=== PATIENT | female | born 1985 | race Caucasian/White ===

== ENCOUNTER 2016-03-29 14:16 | Inpatient (IN) | payer BC ==
[2016-03-29 14:53] LABS: ROM Internal QC QC Line Present
[2016-03-29] MEDS ORDERED: Penicillin G Potassium IV* 5,000,000 UNITS in NS 0.9% 100 ML* 100 ML IVPB ONE (15:15)
[2016-03-29 15:47] LABS: Hematocrit 37 % (35-47); Hemoglobin 12.6 g/dl (12.0-16.0); Mean Corpuscular HGB Conc 34 g/dl (31-36); Mean Corpuscular Hemoglobin 32 pg (27-31); Mean Corpuscular Volume 95 fL (80-97); Mean Platelet Volume 9 um3 (7.4-10.4); Red Cell Distribution Width 14 % (10.5-15); White Blood Count 7.6 10^3/ul (3.5-10.8)
[2016-03-29] MEDS ORDERED: Oxytocin in LR* 20 UNITS/1,000 ML BAG IVPB SCH (19:00)
[2016-03-29] MEDS: Penicillin G Potassium IV* 2,500,000 UNITS in NS 0.9% 100 ML* 100 ML IVPB SCH ×2 (19:48→23:51)
[2016-03-29] MEDS ORDERED: OBEPIDURAL* 250 ML ONE (21:56)
[2016-03-29] MEDS ORDERED: Famotidine TAB* 20 MG PO PRN (23:16)
[2016-03-29] MEDS ORDERED: EPHEDrine (Pressors)* 50 MG/ML VIAL IV PUSH PRN ×2 (23:16)
[2016-03-29] MEDS ORDERED: Sodium Citrate/Citric Acid* 15 ML UDC PO PRN (23:16)
[2016-03-29] MEDS ORDERED: Phenylephrine IV* 40 MCG/ML 10 ML SYRINGE IV PUSH PRN ×2 (23:16)
[2016-03-30] MEDS ORDERED: Acetaminophen TAB* 325 MG PO ONE (01:24)
[2016-03-30] MEDS ORDERED: Acetaminophen TAB* 325 MG ONE (01:28)
[2016-03-30] MEDS ORDERED: Ampicillin IV* 2 GM in NS 0.9% 100 ML* 100 ML IVPB ONE ×2 (02:21→03:00)
[2016-03-30] MEDS ORDERED: Gentamicin ADULT (*) 80 MG in NS 0.9% 100 ML* 100 ML IVPB ONE (03:00)
[2016-03-30] MEDS ORDERED: ceFOXitin 2 GM IVPREMIX* 2 GM/50 ML BAG ONE (04:12)
[2016-03-30] MEDS ORDERED: ceFOXitin 2 GM IVPREMIX* 2 GM/50 ML BAG IVPB ONE (04:35)
[2016-03-30] MEDS ORDERED: Lidocaine 2% EPI 1:200000 MPF* 20 ML VIAL ONE (04:42)
[2016-03-30] MEDS ORDERED: Sodium Bicarbonate 8.4% IV* 50 ML VIAL ONE (04:42)
[2016-03-30] MEDS ORDERED: fentaNYL* 50 MCG/ML 2 ML VIAL (100 MCG VIAL) ONE (04:45)
[2016-03-30] MEDS ORDERED: Morphine PF AMP (0.5MG/ML)* 5 MG/10 ML AMP ONE (04:52)
[2016-03-30] MEDS ORDERED: Naloxone* 0.4 MG/ML 1 ML VIAL IV PRN (05:10)
[2016-03-30] MEDS ORDERED: Ondansetron INJ* 2 MG/ML VIAL IV PRN (05:10)
[2016-03-30] MEDS ORDERED: HYDROmorphone INJ* 1 MG/ML CARPUJECT SYRINGE IV PRN (05:10)
[2016-03-30] MEDS ORDERED: Glycerin ADULT SUPP PR PRN (06:09)
[2016-03-30] MEDS ORDERED: Dibucaine 1% 28.35 GM TUBE PR PRN (06:09)
[2016-03-30] MEDS ORDERED: Witch Hazel PAD* JAR TOPICAL PRN (06:09)
[2016-03-30] MEDS ORDERED: Acetaminophen TAB* 325 MG PO PRN (06:09)
[2016-03-30] MEDS ORDERED: Oxytocin in LR* 20 UNITS/1,000 ML BAG IVPB SCH (07:00)
[2016-03-30] MEDS: OBEPIDURAL* 250 ML EPIDURAL SCH (08:15)
[2016-03-30] MEDS: Ibuprofen TAB* 600 MG PO SCH ×3 (08:16→18:44)
[2016-03-30] MEDS: Penicillin G Potassium IV* 2,500,000 UNITS in NS 0.9% 100 ML* 100 ML IVPB SCH (08:19)
[2016-03-30] MEDS: Ampicillin IV* 2 GM in NS 0.9% 100 ML* 100 ML IVPB SCH ×3 (08:25→21:03)
[2016-03-30] MEDS: Simethicone TAB* 80 MG TAB.CHEW PO SCH ×4 (09:18→21:03)
[2016-03-30 09:24] LABS: EGFR African American 145.4 (>60)
[2016-03-30] MEDS: Clindamycin 900 MG IVPREMIX(* 900 MG/50 ML SDV IV SCH ×2 (09:26→17:08)
[2016-03-30] MEDS: Docusate CAP* 100 MG PO SCH ×3 (09:28→21:03)
[2016-03-30] MEDS: Gentamicin ADULT (*) 110 MG in NS 0.9% 100 ML* 100 ML IVPB SCH ×2 (10:24→19:27)
[2016-03-30] MEDS ORDERED: Gentamicin ADULT (*) 40 MG/ML VIAL IVPB SCH (14:00)
[2016-03-30] MEDS: oxyCODONE/Acetamin 5/325 MG* TAB PO PRN ×2 (14:26→21:09)
[2016-03-31] MEDS: Ibuprofen TAB* 600 MG PO SCH ×2 (00:59→07:23)
[2016-03-31] MEDS: Clindamycin 900 MG IVPREMIX(* 900 MG/50 ML SDV IV SCH ×2 (01:00→09:55)
[2016-03-31] MEDS: oxyCODONE/Acetamin 5/325 MG* TAB PO PRN ×4 (01:13→22:06)
[2016-03-31] MEDS: Ampicillin IV* 2 GM in NS 0.9% 100 ML* 100 ML IVPB SCH ×3 (02:33→17:35)
[2016-03-31] MEDS: Gentamicin ADULT (*) 110 MG in NS 0.9% 100 ML* 100 ML IVPB SCH ×2 (03:19→10:33)
[2016-03-31] MEDS: OBEPIDURAL* 250 ML EPIDURAL SCH (06:06)
[2016-03-31 07:28] LABS: Hematocrit 32 % (35-47); Hemoglobin 10.9 g/dl (12.0-16.0); Mean Corpuscular HGB Conc 34 g/dl (31-36); Mean Corpuscular Hemoglobin 33 pg (27-31); Mean Corpuscular Volume 95 fL (80-97); Mean Platelet Volume 8 um3 (7.4-10.4); Red Blood Count 3.35 10^6/ul (4.0-5.4); Red Cell Distribution Width 14 % (10.5-15); White Blood Count 9.4 10^3/ul (3.5-10.8)
[2016-03-31] MEDS: Docusate CAP* 100 MG PO SCH ×3 (08:54→22:06)
[2016-03-31] MEDS: Simethicone TAB* 80 MG TAB.CHEW PO SCH ×4 (08:54→22:06)
[2016-03-31] MEDS ORDERED: Ferrous Gluconate TAB* 324 MG TAB PO SCH (09:00)
[2016-03-31] MEDS: Ibuprofen TAB* 600 MG PO PRN ×2 (13:44→22:06)
--- NOTE | 2016-03-31 15:18 | OP ---
DATE OF OPERATION: 03/30/16 - ROOM #116 DATE OF : 85 SURGEON: Janie Dailey MD RETAIL SUPPORT ASSOCIATE: Sisi Sanchez CNM ANESTHESIOLOGIST: Dr. Sánchez. ANESTHESIA: Epidural. PRE-OP DIAGNOSES: Intrauterine at 40-6/7th weeks, arrest of descent, chorioamnionitis. POST-OP DIAGNOSES: Intrauterine at 40-6/7th weeks, arrest of descent , chorioamnionitis, delivered. OPERATIVE PROCEDURE: Primary low transverse section. FINDINGS: Revealed a vertex male infant, direct occiput posterior, 's were 9 at one minute and 9 at five minutes, weight was 9 pounds 11 ounces. No nuchal cord. No meconium. Placenta was calcified, manually extracted. Three- vessel cord intact. Placental culture sent. Normal-appearing tubes and ovaries bilaterally. An enlarged 7-mm posterior subserosal fibroid, 2-cm anterior subserosal fibroid. Normal uterine cavity. No evidence of retained membranes or placental tissue. COMPLICATIONS: None apparent. DISPOSITION: Stable to recovery room. IV FLUIDS: 2600 cc of crystalloid. URINE OUTPUT: 300 cc of clearing yellow urine, blood tinged when first inserted. EBL: 500 cc. DESCRIPTION OF PROCEDURE: The patient was placed in dorsal lithotomy position. The abdomen was prepped and draped in a sterile standard fashion. Anesthesia was tested to appropriate level. After complete prep and drape, the patient was identified with the universal protocol for correct position, patient, and procedure. An incision was made 2 fingerbreadths above the pubic symphysis with a scalpel. It was carried down through to the fascia. Fascia was scored in the midline and the fascial incision was extended laterally and superiorly using curved Hernandez scissors. The fascia was sharply and bluntly from the rectus muscle both superiorly and inferiorly. The peritoneum was then entered bluntly. The peritoneal incision was extended superiorly and inferiorly while directly visualizing bladder and bowel. Bladder blade was inserted. Lower uterine segment was identified. An Allis was used to tent up on the lower uterine segment. An incision was made with a scalpel. This was carried down through to the baby. The uterine incision was then extended laterally and superiorly using bandage scissors. The baby was found to be direct OP. Head was delivered. Anterior and then posterior shoulder were delivered. No nuchal cord was appreciated. There was no meconium noted in the fluid. The cord was then doubly clamped. Baby was vigorous and crying on the operative field. The was then handed off to waiting assistant drafter. Appropriate cord blood was obtained. Placenta was then manually extracted and noted to be intact, calcified. The uterine cavity was explored and noted to be free of any retained membranes or placental tissue. The uterine incision itself was clamped with broad Allis' and then reapproximated using 0 Vicryl x2; first layer running locked, second layer running imbricated. The fibroids were noted as described; one anterior uterine wall subserosal 2 cm and one posterior 7-cm subserosal fibroid. Both tubes and ovaries noted to have a normal appearance. The uterus was returned intra-abdominally. The colic gutters were lavaged. Hemostasis was assured at the hysterotomy site. The peritoneum was then reapproximated using 3-0 Vicryl in a running fashion. Subfascial area was visualized and noted to be hemostatic and the fascia itself was then reapproximated using 0 Vicryl x2 in a running fashion. Subcutaneous tissue was lavaged. Hemostasis was assured with Bovie coagulation and a Camper's suture using 3-0 Vicryl was placed in an interrupted fashion for reapproximation of Camper's fascia. The skin was then reapproximated using 4-0 Monocryl in a subcuticular fashion. All sponge, instrument, needle, blade counts were correct throughout the case. The patient tolerated the procedure well and went to recovery room in stable condition. [id number]/[facility] #: [id number] JAY
[2016-04-01] MEDS: Simethicone TAB* 80 MG TAB.CHEW PO SCH ×4 (08:00→20:27)
[2016-04-01] MEDS: Ibuprofen TAB* 600 MG PO PRN (08:00)
[2016-04-01] MEDS: Docusate CAP* 100 MG PO SCH ×3 (08:00→20:02)
[2016-04-01] MEDS: oxyCODONE/Acetamin 5/325 MG* TAB PO PRN ×4 (08:01→20:28)
[2016-04-01] MEDS: Ibuprofen TAB* 600 MG PO SCH ×2 (14:02→20:03)
[2016-04-01 19:52] VITALS: BP 133/89
[2016-04-02] MEDS: oxyCODONE/Acetamin 5/325 MG* TAB PO PRN ×3 (00:43→10:21)
[2016-04-02] MEDS: Ibuprofen TAB* 600 MG PO SCH ×2 (02:25→08:29)
[2016-04-02] MEDS: Simethicone TAB* 80 MG TAB.CHEW PO SCH (08:28)
[2016-04-02] MEDS: Docusate CAP* 100 MG PO SCH (08:32)
== END 2016-04-02 14:25 | disposition home or self-care (01) | DRG 540 ==
LOC: MCHOBOUT 14:16 → MCHOB 15:04
PROVIDERS: ADMIT Midwife; ATTEND Obstetrics & Gynecology
PROC: 10D00Z1 Extraction of Products of Conception, Low, Open Approach (ICD-10-PCS; principal; 2016-03-30 04:43)
DX: O48.0 Post-term pregnancy (principal); O41.1230 Chorioamnionitis, third trimester, not applicable or unspecified; O75.2 Pyrexia during labor, not elsewhere classified; O62.1 Secondary uterine inertia; O99.824 Streptococcus B carrier state complicating childbirth; O34.13 Maternal care for benign tumor of corpus uteri, third trimester; D25.2 Subserosal leiomyoma of uterus; Z3A.40 40 weeks gestation of pregnancy; Z37.0 Single live birth
CPT/HCPCS: 36415; 82565; 84112; 84520; 85025; 86850; 86900; 86901; 87070; 88307; A9270-GY; J0290; J0694; J1580; J2540; J3010

== ENCOUNTER 2017-03-22 16:21 | Emergency (ER) | payer BC ==
[2017-03-22 16:42] VITALS: BP 116/77
[2017-03-22] MEDS ORDERED: Ondansetron ODT TAB* 4 MG PO ONE (16:58)
[2017-03-22] MEDS ORDERED: Amoxicillin PO (*) 500 MG CAP PO ONE (17:40)
--- NOTE | 2017-03-22 17:43 | UC ---
Carli Quinn Nilda, scribed for Paco Kovacs MD on 03/22/17 at 1652 . Throat Pain/Nasal Magdaleno HPI - HPI Summary HPI Summary: This patient is a 31 year old F presenting to [facility] [place] with a chief complaint of constant sore throat since yesterday. The patient rates the aching pain 3/10 in severity. Symptoms aggravated and alleviated by nothing. Patient reports body aches, chills, diarrhea (today), abd pain, and nausea. Patient denies vomiting, dyspnea, and skin rashes. Pt states symptoms feel similar to previous episode of strep. Positive recent sick contacts at work (pt is a [employer]). Pt does not believe she is but she states she is currently nursing. - History of Current Complaint Chief Complaint: UCGeneralIllness Stated Complaint: sore throat Hx Obtained From: Patient Hx Last Menstrual Period: 03/09/2017 Onset/Duration: Sudden Onset, Lasting Days, Still Present Pain Intensity: 3 Pain Scale Used: 0-10 Numeric Associated Signs & Symptoms: Positive: Other - body aches, chills, diarrhea ( today) - Allergies/Home Medications Allergies/Adverse Reactions: Allergies Allergy/AdvReac Type Severity Reaction Status Date / Time No Known Allergies Allergy Verified 03/22/15 20:04 Home Medications: Home Medications D-Methorphan/PE/Acetaminophen [Daytime Cold Multi-Symp Gelcap] 03/22/17 [ History] PMH/Surg Hx/FS Hx/Imm Hx Respiratory History: Asthma - exercise induced - Surgical History Surgical History: Yes Surgery Procedure, Year, and Place: WISDOM TEETH REMOVED 2004. 1 year ago. LASIK 2010. hip surgery - Family History Known Family History: Positive: Hypertension - father, Other - lupus (mother); protein C deficiency (brother) - Social History Occupation: Employed Full-time - teacher Alcohol Use: None Substance Use Type: None Smoking Status (MU): Never Smoked Tobacco - Immunization History Most Recent Influenza Vaccination: 11/17/15 Most Recent Tetanus Shot: 01/21/16 Most Recent Pneumonia Vaccination: n/a Review of Systems Constitutional: Chills Skin: Other - negative skin rash ENT: Sore Throat Respiratory: Other - negative dyspnea Gastrointestinal: Abdominal Pain, Diarrhea, Nausea, Other - negative vomiting Musculoskeletal: Myalgia All Other Systems Reviewed And Are Negative: Yes Physical Exam Triage Information Reviewed: Yes Vital Signs: Initial Vital Signs Temp 97.6 F 03/22/17 16:37 Pulse 77 03/22/17 16:37 Resp 16 03/22/17 16:37 BP 116/77 03/22/17 16:37 Pulse Ox 100 03/22/17 16:37 Vital Signs Reviewed: Yes - Additional Comments Appearance: Well-appearing, Well-nourished Skin: Warm Eyes: Normal ENT: Enlarged tonsils bilat with visible exudate, positive bilat tender cervical lymphadenopathy Neck: Supple, nontender Respiratory: Clear to auscultation Cardiovascular: Normal S1, S2. No murmurs. Normal distal pulses in tibial and radial bilaterally. Abdomen: Soft, nontender Musculoskeletal: Normal, Strength/ROM Intact Neurological: Normal, A&Ox3 Psychiatric: Normal General: No acute distress Throat Pain/Nasal Course/Dx - Course Assessment/Plan: negative for flu and strep, will treat empirically however based on h+p. pt in no acute distress, agrees to and understnads dc sintruction. s - Differential Dx/Diagnosis Provider Diagnoses: strep pharyngitis Discharge - Discharge Plan Condition: Stable Disposition: HOME Prescriptions: Amoxicillin PO (*) [Amoxicillin 500 MG CAP*] 1,000 mg PO DAILY #10 cap Patient Education Materials: Strep Throat (ED) Forms: *Work Release Referrals: No Primary Care Phys,NOPCP [Primary Care Provider] - [facility] [Provider Group] Additional Instructions: PLEASE TAKE MEDICATIONS DIRECTED PLEASE KEEP YOURSELF WELL HYDRATED WITH SMALL AMOUNTS OF FLUID MORE FREQUENTLY THROUGHOUT THE DAY PLEASE SEEK MEDICAL ATTENTION IMMEDIATELY IF YOU HAVE ANY WORSENING OR CONCERNING SYMPTOMS PLEASE MAKE AN APPOINTMENT TO BE SEEN BY YOUR PRIMARY CARE DOCTOR WITHIN 1 WEEK The documentation as recorded by the Carli cleary Nilda accurately reflects the service I personally performed and the decisions made by me, Paco Kovacs MD.
== END 2017-03-22 17:50 | disposition home or self-care (01) ==
LOC: UCEAST 16:21
DX: J02.0 Streptococcal pharyngitis (principal); J45.990 Exercise induced bronchospasm
CPT/HCPCS: 87502; 87651; 99212; A9270-GY; G0463

== ENCOUNTER 2017-10-05 14:58 | Emergency (ER) | payer BC ==
[2017-10-05 15:17] VITALS: BP 106/76
[2017-10-05] MEDS ORDERED: Albuterol/Ipratropium NEB.SOL* Albuterol 2.5 MG/Ipratropium 0.5 MG 3 ML INH ONE (16:20)
[2017-10-05] MEDS ORDERED: predniSONE TAB* 20 MG PO ONE (16:20)
--- NOTE | 2017-10-05 16:20 | UC ---
Respiratory Complaint HPI - HPI Summary HPI Summary: 32 y/o female presents to the urgent care c/o mild wheezing, SOB at times s/p inhaling wall dust while was drilling a dry wall Tuesday10/02/2017. Pt has a burning sore throat w/ occasional dry cough. She has PMHX of exercise induced asthma that has been controlled for many years. She doesn't have an inhaler.Pt denies fever, nasal congestion, URI, chest pain, palpitations, abdominal pain, N/V/D. - History of Current Complaint Chief Complaint: UCRespiratory Stated Complaint: TIGHTNESS IN CHEST ASTHMA SYMPTOMS Time Seen by Provider: 10/05/17 16:13 Hx Obtained From: Patient Hx Last Menstrual Period: 09/26/17 Onset/Duration: Gradual Onset, Lasting Days - 3 days, Still Present, Worse Since - today Timing: Intermittent Episodes Severity Initially: Mild Severity Currently: Mild Pain Intensity: 2 Pain Scale Used: 0-10 Numeric Character: Cough: Nonproductive Aggravating Factors: Deep Breaths, Recumbent Position Alleviating Factors: Nothing Associated Signs And Symptoms: Positive: Wheezing. Negative: Fever, Chills, Dizziness, URI, Nasal Congestion, Hoarseness - Risk Factors Pulmonary Embolism Risk Factors: Negative Cardiac Risk Factors: Negative Pseudomonas Risk Factors: Negative Tuberculosis Risk Factors: Negative - Allergies/Home Medications Allergies/Adverse Reactions: Allergies Allergy/AdvReac Type Severity Reaction Status Date / Time No Known Allergies Allergy Verified 10/05/17 15:10 PMH/Surg Hx/FS Hx/Imm Hx Previously Healthy: Yes Respiratory History: Asthma - exercise induced - Surgical History Surgical History: Yes Surgery Procedure, Year, and Place: WISDOM TEETH REMOVED 2004. MAR 2016. LASIK 2010. hip surgery - Family History Known Family History: Positive: Hypertension - father Family History: lupus (mother); protein C deficiency (brother) - Social History Occupation: Employed Full-time Lives: With Family Alcohol Use: Rare Substance Use Type: None Smoking Status (MU): Never Smoked Tobacco - Immunization History Most Recent Influenza Vaccination: 11/17/15 Most Recent Tetanus Shot: 01/21/16 Most Recent Pneumonia Vaccination: n/a Review of Systems Constitutional: Negative Skin: Negative Eyes: Negative ENT: Sore Throat Respiratory: Cough - dry, Other - wheezing Cardiovascular: Negative Gastrointestinal: Negative Genitourinary: Negative Motor: Negative Neurovascular: Negative Musculoskeletal: Negative Neurological: Negative Psychological: Negative Is Patient Immunocompromised?: No All Other Systems Reviewed And Are Negative: Yes Physical Exam - Summary Physical Exam Summary: Vital Signs Reviewed: Yes General: well developed, well nourished female sitting in the examining table w/ o any apparent distress Eyes: Positive: Conjunctiva Clear - PERRLA, EOMI, fundi grossly normal ENT: Positive: Normal ENT inspection, Hearing grossly normal, Pharynx normal, Nasal congestion - edematous and erythematous nasal mucosa, Nasal drainage - yellowish drainage, TMs normal. Negative: Tonsillar swelling, Tonsillar exudate Neck: Positive: Supple, Nontender, No Lymphadenopathy Respiratory: no orthopnea or dyspnea. Able to speak in full sentences, no retractions or accessory muscle use, no tripod position, stridor, or head bobbing. Positive breath sounds bilaterally, mild wheezing in the left upper posterior lung wheezes, rhonchi, rales. Cardiovascular: Positive: RRR, No Murmur, Pulses Normal, Brisk Capillary Refill Abdomen Description: Positive: Nontender, No Organomegaly, Soft. Negative: CVA Tenderness (R), CVA Tenderness (L) Bowel Sounds: Positive: Present Musculoskeletal Exam: Normal Musculoskeletal: Positive: Strength Intact, ROM Intact, No Edema Neurological Exam: Normal Psychological Exam: Normal Skin Exam: Normal Triage Information Reviewed: Yes Vital Signs: Initial Vital Signs Temp 98.5 F 10/05/17 15:11 Pulse 88 10/05/17 15:11 Resp 17 10/05/17 15:11 BP 106/76 10/05/17 15:11 Pulse Ox 100 10/05/17 15:11 Diagnostic Evaluation - Laboratory O2 Sat by Pulse Oximetry: 100 Respiratory Course/Dx - Course Course Of Treatment: 32 y/o female presents to the urgent care c/o mild wheezing , SOB at times s/p inhaling wall dust while was drilling a dry wall Tuesday10/02/2017. Pt has a burning sore throat w/ occasional dry cough. She has PMHX of exercise induced asthma that has been controlled for many years. She doesn't have an inhaler.Pt denies fever, nasal congestion, URI, chest pain, palpitations, abdominal pain, N/V/D. Hx obtained. Pt w/ asthma exacerbation s/p dust inhalation on examination. O2Sat:100%. Prednisone take dose and Duo neb Treatment given to patient. Patient tolerated well treatment and lungs improved , O2 sat 100%. Patient prescribed Prednisone PO and albuterol inhaler as directed below. The patient was recommended to increase fluid intake. Take medications as recommended. Patient recommended to return to the clinic or go to the nearest ER if symptoms do not improve or worsen. Patient understood and agree w/ plan of care. - Differential Dx/Diagnosis Differential Diagnosis/HQI/PQRI: Aspiration, Asthma, Bronchitis, Influenza, Laryngitis, Lower Resp Infection Provider Diagnoses: 1- Acute asthma exacerbation s/p dust inhalation Discharge - Sign-Out/Discharge Documenting (check all that apply): Patient Departure - D/C home All imaging exams completed and their final reports reviewed: No Studies - Discharge Plan Condition: Stable Disposition: HOME Prescriptions: Albuterol HFA INHALER* [Ventolin HFA Inhaler*] 1 - 2 puff INH Q6H PRN #1 mdi PRN Reason: Wheezing predniSONE TAB* [Deltasone 20 MG TAB*] 20 mg PO DAILY #8 tab Patient Education Materials: Asthma (ED) Referrals: [facility] PHYSICIAN REFERRAL [Outside] - 3 Days Additional Instructions: 1- Take Prednisone PO taper dose as directed starting tomorrow. First loading dose given today. 2-Use albuterol inhaler to alleviate SOB, and wheezing as directed . Increase fluid intake, rest and eat well. 3- If symptoms do not improve or worsen or your develop severe SOB and wheezing please go immediately to the ER further evaluation and treatment. 4- F/u with your PCP in 3 days if not improvement of symptoms for further management on your Asthma - Billing Disposition and Condition Condition: STABLE Disposition: Home
== END 2017-10-05 17:04 | disposition home or self-care (01) ==
LOC: UCCORT 14:58
DX: J45.901 Unspecified asthma with (acute) exacerbation (principal)
CPT/HCPCS: 99212; A9270-GY; G0463; J7512

== ENCOUNTER 2018-06-25 02:30 | Inpatient (IN) | payer BC ==
[2018-06-25] MEDS ORDERED: Misoprostol TAB* 200 MCG PR ONE (02:52)
[2018-06-25] MEDS ORDERED: Acetaminophen TAB* 325 MG PO PRN (02:52)
--- NOTE | 2018-06-25 02:59 | HP ---
General Information - Reason for Visit 32yo presents by ambulance to ER with active labor for less than an hour. History of C/S, desired . - General Information Maternal Age: 30 Grav: 1 Para: 0 SAB: 0 IEA: 0 Estimated Due Date: 07/02/18 Determined By: LMP Gestational Age in Weeks/Days: 39+0 Maternal Blood Type and Rh: B Positive - Results this Serology/RPR Result: Non-Reactive Rubella Result: Immune HBsAg Result: Negative HIV Result: Negative GBS Culture Result: Positive Past Medical History Delivery History: Hx C/Section Pertinent Past Medical History: See Records - asthma, migraines, fibroids Pertinent Past Surgical History: See Records - Right hip surgery, C/S , LASIK - Antepartal Records Antepartal Records: Reviewed, Complicated by: - prior C/S Review of Systems Constitutional: Uncomfortable CV Complaint: No Respiratory: Shortness of Breath: No Gastrointestinal: No Nausea/Vomiting Genitourinary: Leaking Fluid Musculoskeletal: Contractions Movement: Normal Exam Allergies/Adverse Reactions: Allergies No Known Allergies Allergy (Verified 10/05/17 15:10) VS normal - Measurements Height: 5 ft 4 in Pre- Weight: 180 lb - Exam Breast: Breast Exam Deferred CVA: No CVA Tenderness Heart: Normal Rhythm/Heart Sounds HEENT: No Significant Findings Lungs: Clear Bilaterally Rectal: Rectal Exam Deferred - Abdominal Exam Abdomen Exam: Non-Tender, Fundal Height Consistent with Dates - Ultrasound/Biophysical Profile Ultrasound Status: Not Done Targeted Exam Findings Cervical Exam: Complete Effacement: Complete Station: +4 Presenting Part: Vertex Membrane Status: SROM Amniotic Fluid Evaluation: Gross Rupture EFM Findings - External Monitor Findings Contractions: Regular, Strong Contraction Frequency: Q2 Assessment/Plan - Assessment 39 wks with h/o C/S presents with precipitous vaginal delivery just after transfer from ER. See delivery info from zechariah Steinife. - Obstetrical Risk Factors Obstetrical Risk Factors: GBS Positive - Plan Plan: Admit - Anticipate Vaginal Delivery - Date/Time of Admission Date of Admission: 06/25/18 Time of Admission: 02:30
[2018-06-25] MEDS ORDERED: Oxytocin in LR* 20 UNITS/1,000 ML BAG IVPB SCH (03:00)
[2018-06-25] MEDS ORDERED: Lactated Ringers 1000 ML Bag* 1,000 ML IV SCH (03:00)
--- NOTE | 2018-06-25 03:31 | PROCNOTE ---
[facility] OB: Delivery Note - Delivery A Date of : 06/25/18 Time of : 02:33 Sex: Male Score 1 Minute: 9 Score 5 Minutes: 9 Gestational Age in Weeks and Days at Delivery: 39 Weeks and 0 Days Delivery Method: Spontaneous Vaginal Labor: Spontaneous Did Patient attempt ?: Yes, Successful Amniotic Fluid: Bloody Estimated Blood Loss: 450 Anesthesia/Analgesia: None Delivered By: Ava Mendoza - Nursery Level of Nursery: Regular/Bedside - Perineum Perineal Injury: Perineal Laceration, 2nd Degree Perineal Repair: By Delivering Practioner - Events Delivery Events of Note: Pitocin Only After Delivery, Post- Bleeding - Meds Given
[2018-06-25] MEDS: Witch Hazel PAD* JAR TOPICAL PRN ×2 (06:37→13:58)
[2018-06-25] MEDS: Dibucaine 1% 28.35 GM TUBE PR PRN ×2 (06:37→13:58)
[2018-06-25] MEDS ORDERED: Simethicone TAB* 80 MG TAB.CHEW PO SCH (08:30)
[2018-06-25] MEDS: Docusate CAP* 100 MG PO SCH ×3 (09:36→20:35)
[2018-06-25] MEDS: Ibuprofen TAB* 600 MG PO PRN ×2 (09:40→20:38)
[2018-06-25] MEDS ORDERED: Misoprostol TAB* 200 MCG ONE (09:52)
[2018-06-25] MEDS ORDERED: Lidocaine 1% INJ* 10 MG/ML 30 ML SDV ONE (09:52)
[2018-06-26 06:17] LABS: ABS Eosinophils 0.5 10^3/ul (0-0.6); ABS Lymphocytes 3.8 10^3/ul (1.0-4.8); ABS Neutrophils 7.2 10^3/ul (1.5-7.7); Eosinophil % 4.1 %; Hematocrit 28 % (35-47); Hemoglobin 9.6 g/dL (12.0-16.0); Mean Corpuscular HGB Conc 34 g/dL (31-36); Mean Corpuscular Hemoglobin 33 pg (27-31); Mean Corpuscular Volume 97 fL (80-97); Mean Platelet Volume 7.3 fL (7.4-10.4); Nucleated Red Blood Cells % 0.1; Platelet Count 223 10^3/uL (150-450); Red Blood Count 2.93 10^6 /uL (3.70-4.87); Red Cell Distribution Width 14 % (10.5-15); White Blood Count 12.5 10^3/uL (3.5-10.8)
[2018-06-26] MEDS: Ferrous Gluconate TAB* 324 MG TAB PO SCH ×2 (07:53→20:13)
[2018-06-26] MEDS: Ibuprofen TAB* 600 MG PO PRN ×3 (07:54→21:56)
[2018-06-26] MEDS: Docusate CAP* 100 MG PO SCH ×3 (07:54→20:13)
[2018-06-27] MEDS: Ibuprofen TAB* 600 MG PO PRN ×2 (03:51→09:49)
[2018-06-27 08:10] VITALS: BP 132/82
[2018-06-27] MEDS: Docusate CAP* 100 MG PO SCH (08:37)
[2018-06-27] MEDS: Ferrous Gluconate TAB* 324 MG TAB PO SCH (08:37)
[2018-06-27] MEDS: Dibucaine 1% 28.35 GM TUBE PR PRN (09:52)
== END 2018-06-27 13:30 | disposition home or self-care (01) | DRG 560 ==
LOC: MCHOB 02:30
PROVIDERS: ADMIT Midwife; ATTEND Midwife
PROC: 10E0XZZ Delivery of Products of Conception, External Approach (ICD-10-PCS; principal; 2018-06-25)
PROC: 0KQM0ZZ Repair Perineum Muscle, Open Approach (ICD-10-PCS; 2018-06-25)
DX: O62.3 Precipitate labor (principal); Z37.0 Single live birth; O70.1 Second degree perineal laceration during delivery; O99.52 Diseases of the respiratory system complicating childbirth; J45.909 Unspecified asthma, uncomplicated; O34.211 Maternal care for low transverse scar from previous cesarean delivery; O90.81 Anemia of the puerperium; D64.9 Anemia, unspecified; Z3A.39 39 weeks gestation of pregnancy
CPT/HCPCS: 36415; 85025; 99282; A9270-GY

== ENCOUNTER 2023-05-21 11:30 | Inpatient (IN) ==
[2023-05-21] MEDS ORDERED: Prochlorperazine 5 mg/ml 2 ml VIAL (10 mg) IV PRN ×2 (12:02→12:36)
[2023-05-21] MEDS ORDERED: Lactated Ringers 1000 ml BAG 1,000 ML IV ONE (12:02)
[2023-05-21] MEDS ORDERED: Lidocaine 1% VIAL 10 MG/ML 30 ML VIAL INJ PRN (12:02)
[2023-05-21] MEDS ORDERED: Penicillin G Potassium IV 5,000,000 UNITS in NS 0.9% 100 ml BAG 100 ML IVPB ONE (12:36)
[2023-05-21] MEDS: Buffered Lidocaine 1% SYRIN 1 ml ONE (12:44)
[2023-05-21] MEDS: Buffered Lidocaine 1% SYRIN 1 ml INTRADERM ONE ×2 (12:44→12:45)
[2023-05-21] MEDS: Lactated Ringers 1000 ml BAG 1,000 ML IV ONE (12:45)
[2023-05-21 12:59] LABS: ABS Basophils 0.1 10^3/uL (0.0-0.1); ABS Eosinophils 0.1 10^3/uL (0.0-0.5); ABS Lymphocytes 2.4 10^3/uL (1.0-4.8); ABS Monocytes 0.9 10^3/uL (0.0-0.9); ABS Neutrophils 6.6 10^3/uL (1.5-7.6); ABS Nucleated RBC 0.01 10^3/ul; Eosinophil % 0.8 %; Hematocrit 33.6 % (35-45); Hemoglobin 11.3 g/dL (11.5-14.3); Lymphocyte % 24.3 %; Mean Corpuscular Hemoglobin 29.9 pg (27-33); Mean Corpuscular Hgb Conc 33.6 g/dL (31-36); Mean Platelet Volume 7.8 fL (7.5-11.2); Nucleated Red Blood Cells % 0.1 %/100WBC (0.0-0.8); Platelet Count 331 10^3/uL (150-450); Red Blood Count 3.77 10^6/uL (3.63-4.92); Red Cell Distribution Width 14.5 % (12-17)
[2023-05-21] MEDS ORDERED: Lactated Ringers 1000 ml BAG 1,000 ML IV SCH ×3 (13:00→15:00)
[2023-05-21] MEDS ORDERED: Penicillin G Potassium IV 3,000,000 UNITS in NS 0.9% 100 ml BAG 100 ML IVPB SCH ×2 (13:00→17:00)
[2023-05-21 13:06] LABS: Urine Appearance Turbid; Urine Bilirubin Negative (Negative); Urine Blood 1+ (Negative); Urine Color Yellow; Urine Glucose Negative (Negative); Urine Ketones Negative (Negative); Urine Nitrite Negative (Negative); Urine Protein Trace (Negative); Urine Specific Gravity 1.022 (1.002-1.030); Urine Urobilinogen Negative (Negative); Urine pH 6.5 (5.0-8.0)
[2023-05-21 13:09] LABS: Urine Bacteria Absent /HPF (Absent); Urine Red Blood Cell Trace(0-2/hpf) /HPF (0-Trace); Urine Squamous Epithelial Cell Present /HPF (Absent); Urine White Blood Cell 2+(11-20/hpf) /HPF (0-Trace)
[2023-05-21] MEDS: Penicillin G Potassium IV 5,000,000 UNITS in NS 0.9% 100 ml BAG 100 ML IVPB ONE (13:10)
[2023-05-21 13:21] LABS: Urine Benzodiazepine Screen None Detected (None Detect); Urine Cannabinoids Screen None Detected (None Detect); Urine Opiates Screen None Detected (None Detect)
[2023-05-21] MEDS: Oxytocin in LR 20,000 MILLI.UNIT/1,000 ML BAG IV SCH (14:45)
[2023-05-21] MEDS ORDERED: Glycerin ADULT 2.4 gm SUPP PR PRN (14:54)
[2023-05-21] MEDS ORDERED: Measles, Mumps,Rubella VACC 0.5 ML/VIAL SUBCUT ONE (14:54)
[2023-05-21] MEDS: Lidocaine 1% VIAL 10 MG/ML 30 ML VIAL INJ PRN (15:04)
[2023-05-21] MEDS: Oxytocin in LR 20,000 MILLI.UNIT/1,000 ML BAG IV ONE (15:05)
[2023-05-21] MEDS: Dibucaine 1% OINT 28.35 GM TUBE PR PRN (15:41)
[2023-05-21] MEDS: Witch Hazel PAD JAR TOPICAL PRN (15:41)
[2023-05-22 07:43] LABS: ABS Basophils 0.1 10^3/uL (0.0-0.1); ABS Eosinophils 0.1 10^3/uL (0.0-0.5); ABS Monocytes 1.1 10^3/uL (0.0-0.9); ABS Neutrophils 8.5 10^3/uL (1.5-7.6); Hematocrit 29.5 % (35-45); Hemoglobin 10.1 g/dL (11.5-14.3); Lymphocyte % 23.4 %; Mean Corpuscular Hemoglobin 30.3 pg (27-33); Mean Corpuscular Hgb Conc 34.3 g/dL (31-36); Mean Corpuscular Volume 88.2 fL (80-97); Mean Platelet Volume 7.6 fL (7.5-11.2); Platelet Count 289 10^3/uL (150-450); Red Blood Count 3.34 10^6/uL (3.63-4.92); Red Cell Distribution Width 14.3 % (12-17); White Blood Count 12.7 10^3/uL (3.8-11.8)
[2023-05-22] MEDS: Measles, Mumps,Rubella VACC 0.5 ML/VIAL SUBCUT ONE (13:34)
[2023-05-23 08:11] VITALS: BP 142/84
== END 2023-05-23 16:20 | disposition home or self-care (01) | DRG 560 ==
LOC: MCHOBOUT 11:30 → MCHOB 12:03
PROVIDERS: ADMIT Obstetrics & Gynecology; ATTEND Advanced Practice Midwife